=== PATIENT | female | born 1960 | race Caucasian/White ===

== ENCOUNTER 2017-11-03 10:34 | Day surgery (SDC) | payer MEDICAID ==
[2017-11-03] VITALS (9 sets, daily range): BP systolic 144–174; BP diastolic 59–100
[~2017-11-03] VITALS: Ht 165.1 cm; Wt 96.6 kg
[~2017-11-03 10:34] MED LIST: HYDR-3972 PO; IRBE150T51 PO; PARO-62 PO; TEMA30CA5 PO
[2017-11-03] MEDS ORDERED: diphenhydrAMINE 25mg capsule PO PRN (11:00)
[2017-11-03] MEDS ORDERED: normal saline 1000ml 1,000 ML IV SCH (11:00)
[2017-11-03] MEDS ORDERED: LORazepam 0.5 MG tablet PO PRN (11:00)
[2017-11-03] MEDS ORDERED: ALB0.5UD IH (11:48)
[2017-11-03] MEDS ORDERED: oxygen (11:48)
[2017-11-03] MEDS ORDERED: NITR0.4T51 SL (11:48)
[2017-11-03] MEDS ORDERED: ALBU8HFA PO (11:48)
[2017-11-03] MEDS ORDERED: ASPI81TA52 PO (11:48)
[2017-11-03] MEDS ORDERED: TIOT4MIS3 INH (11:48)
[2017-11-03] MEDS ORDERED: midazolam 2 mg/2 ml injection ONE (12:54)
[2017-11-03] MEDS ORDERED: fentaNYL/PF 50MCG/1 ML 2ML syringe ONE (12:54)
[2017-11-03] MEDS ORDERED: LIDOcaine 1% w/EPI 1:100,000 30ml vial (MDV) ONE (12:54)
[2017-11-03] MEDS ORDERED: iohexol 350MG/ML 100ml bottle IV ONE (12:54)
[2017-11-03] MEDS ORDERED: ondansetron/PF 4mg/2ml inj IV PRN (14:20)
[2017-11-03] MEDS ORDERED: HYDROcodone/acetaminophen 5mg/325mg tablet PO PRN (14:20)
[2017-11-03] MEDS ORDERED: proCHLORperazine 10 MG/2 ml inj IV PRN (14:25)
[2017-11-03] MEDS ORDERED: OXAZEpam 15mg capsule PO PRN (14:25)
[2017-11-03] MEDS ORDERED: HYDROcodone/acetaminophen 10/325mg tab PO PRN (14:25)
== END 2017-11-03 17:00 | disposition home or self-care (01) ==
LOC: SSTAY O 10:34
PROVIDERS: ATTEND Internal Medicine Interventional Cardiology
DX: I25.118 Atherosclerotic heart disease of native coronary artery with other forms of angina pectoris (principal); E78.5 Hyperlipidemia, unspecified; J43.9 Emphysema, unspecified; I12.9 Hypertensive chronic kidney disease with stage 1 through stage 4 chronic kidney disease, or unspecified chronic kidney disease; N18.4 Chronic kidney disease, stage 4 (severe); F32.89 Other specified depressive episodes; F17.210 Nicotine dependence, cigarettes, uncomplicated; Z86.14 Personal history of Methicillin resistant Staphylococcus aureus infection; Z91.048 Other nonmedicinal substance allergy status; Z79.82 Long term (current) use of aspirin; Z90.49 Acquired absence of other specified parts of digestive tract; Z86.74 Personal history of sudden cardiac arrest; Z90.2 Acquired absence of lung [part of]; Z88.8 Allergy status to other drugs, medicaments and biological substances; Z98.890 Other specified postprocedural states; Z79.899 Other long term (current) drug therapy
CPT/HCPCS: 93005; 93458; 99152; A6257; C1769; J1644; J2250; J3010; J3490; J7030; Q0163; Q9967; A4620

== ENCOUNTER 2018-10-03 09:03 | Inpatient (IN) | payer MEDICAID ==
[2018-09-29 15:24] LABS: CLARITY,URINE CLEAR (Clear); COLOR,URINE STRAW (Yellow); GLUCOSE, URINE NEGATIVE (Neg); KETONES,URINE NEGATIVE (Neg); LEUKOCYTE ESTERASE ,URINE NEGATIVE (Neg); NITRITES, URINE NEGATIVE (Neg); OCCULT BLOOD,URINE NEGATIVE (Neg); PH,URINE 6.5 (4.8-8.0); PROTEIN,URINE NEGATIVE (Neg); UROBILINOGEN,URINE 0.2 E.U/dL (0.2-1.0)
[2018-09-29 15:25] LABS: UA COLLECTION TYPE NON-SPECIFIED
[2018-09-29 15:33] LABS: BASOPHILS # (AUTO) 0.1 X10'3 (0-0.2); BASOPHILS % (AUTO) 0.7 % (0-1); EOSINOPHILS # (AUTO) 0.3 X10'3 (0-0.9); EOSINOPHILS % (AUTO) 3.5 % (0-6); LYMPHOCYTES # (AUTO) 1.9 X10'3 (1.1-4.8); MEAN CORPUSCULAR HEMOGLOBIN 30.2 PG (27.0-31.0); MEAN CORPUSCULAR VOLUME 88.9 FL (78-98); MEAN PLATELET VOLUME 10.3 FL (7.4-10.4); MONOCYTES # (AUTO) 0.6 X10'3 (0-0.9); NEUTROPHILS # (AUTO) 5.2 X10'3 (1.8-7.7); NEUTROPHILS % (AUTO) 64.8 % (42-75); PRE OP HEMATOCRIT 46.9 % (35.0-45.0); PRE OP HEMOGLOBIN 15.9 g/dL (12.0-16.0); PRE OP PLATELET COUNT 202 X10'3 (140-440); RED BLOOD COUNT 5.27 X10'6 (4.20-5.60); RED CELL DISTRIBUTION WIDTH 13.5 % (11.5-14.5)
[2018-09-29 16:08] LABS: ALBUMIN/GLOBULIN RATIO 0.6 (1.1-1.5); ALKALINE PHOSPHATASE 87 IU/L (46-116); BLOOD UREA NITROGEN 11 MG/DL (7-18); BUN/CREATININE RATIO 14.5 (6.6-38.0); CALCIUM 8.2 MG/DL (8.5-10.1); CHLORIDE 104 MMOL/L (99-107); CREATININE 0.76 MG/DL (0.40-0.90); PRE OP ALT 24 U/L (30-65); PRE OP ANION GAP 11 (8-16); PRE OP AST 29 U/L (10-37); PRE OP BILIRUB, TOTAL 0.2 MG/DL (0.0-1.0); PRE OP GLUCOSE 122 MG/DL (70-104); PRE OP POTASSIUM 3.8 MMOL/L (3.4-5.1); PRE OP PROTIME 9.7 SECONDS (9.0-12.0); PRE OP SODIUM 136 MMOL/L (135-145); TOTAL PROTEIN 7.7 G/DL (6.4-8.2); eGFR 78 ML/MIN
[2018-10-03] VITALS (30 sets, daily range): BP systolic 91–177; BP diastolic 48–124
[~2018-10-03] VITALS: Ht 165.1 cm; Wt 98.5 kg
[~2018-10-03 09:03] MED LIST changes: +ALBU8HFA PO; +FAMO40TA73 PO; -HYDR-3972 PO; -IRBE150T51 PO; +LOSA25TA96 PO; -TEMA30CA5 PO; +TIOT4MIS3 INH; +VARE0.5T PO; +albuterol 2.5 MG/3 ML nebule NEB ONE; +ceFAZolin 2gm in dextrose, iso 100 ML IV ONE; +cefazolin/dext.iso 2gm/100ml 100 ML IV ONE; +famotidine 20mg tablet PO ONE; +oxygen; +ringers solution, lacted 1,000 ML IV SCH
[2018-10-03] MEDS ORDERED: ROPIVAcaine 0.5% (5mg/ml) 30ml vial ONE (10:31)
[2018-10-03] MEDS ORDERED: BUPIVAcaine/PF 2.5 mg/ml (0.25%) 30ml vial ONE (10:31)
[2018-10-03] MEDS ORDERED: LIDOcaine 1% 30ml preserv. free vial ONE (10:31)
[2018-10-03] MEDS ORDERED: ketorolac trometh. 30mg/ml inj. ONE (10:31)
[2018-10-03] MEDS ORDERED: sevoflurane 250ml liquid IH ONE (11:27)
[2018-10-03] MEDS ORDERED: midazolam 2 mg/2 ml injection ONE (11:31)
[2018-10-03] MEDS ORDERED: fentaNYL /PF 50mcg/ml 5ml ampule ONE (11:39)
[2018-10-03] MEDS ORDERED: albuterol 60 PUFF/8GM Inhaler IH ONE (12:21)
[2018-10-03] MEDS ORDERED: LIDOcaine 2% (20mg/ml) 5ml vial ONE (12:21)
[2018-10-03] MEDS ORDERED: ondansetron/PF 4mg/2ml inj ONE (12:21)
[2018-10-03] MEDS ORDERED: neostigmine methylsulfate 1 MG/ML 10ml vial ONE (12:21)
[2018-10-03] MEDS ORDERED: dexamethasone sod phosphate 4mg/ml inj. ONE (12:21)
[2018-10-03] MEDS ORDERED: propofol inj 20 ML IV ONE (12:21)
[2018-10-03] MEDS ORDERED: rocuronium 10mg/ml inj IV ONE (12:21)
[2018-10-03] MEDS ORDERED: glycopyrrolate 0.2mg/ml inj ONE (12:21)
[2018-10-03] MEDS ORDERED: ringers solution, lacted 1,000 ML IV SCH (12:26)
[2018-10-03] MEDS ORDERED: phenylephrine 10mg/ml inj. ONE (12:29)
[2018-10-03] MEDS ORDERED: meperidine/PF 25mg/ml syringe IV PRN ×2 (12:30)
[2018-10-03] MEDS ORDERED: proCHLORperazine 10 MG/2 ml inj IV PRN (12:30)
[2018-10-03] MEDS ORDERED: morphine 4 MG/ML inj SYRINge IV PRN ×2 (12:30)
[2018-10-03] MEDS ORDERED: ondansetron/PF 4mg/2ml inj IV PRN ×2 (12:30→14:45)
[2018-10-03] MEDS ORDERED: sugammadex 200mg/2ml injection IV ONE (14:17)
--- NOTE | 2018-10-03 14:23 | NUR ---
Received from OR via [facility], accompanied by Anesthesiologist DR PINEDO and report given by Anesthesiologist. PT VERY DROWSY, VSS, PT GIVEN .2MG ROMAZICON AND 5MG LABETALOL BY DR PINEDO. ABDOMEN W/ABD BINDER IN PLACE COVERING 3 INCISION W/DERMABOND, CDI. Addendum: 10/03/18 at 1514 by Nadya Lozano RN Amended: Links added.
[2018-10-03] MEDS ORDERED: flumazenil 0.1 mg/ml inj. IV ONE (14:28)
[2018-10-03] MEDS ORDERED: labetalol 20mg/4ml (5mg/ml) syringe IV ONE (14:34)
[2018-10-03] MEDS ORDERED: ipratropium/albuterol 3ml nebule NEB PRN (14:40)
[2018-10-03] MEDS ORDERED: Potassium Cl inj 20 MEQ in ringers solution, lacted 1,000 ML IV SCH (14:45)
[2018-10-03] MEDS ORDERED: albuterol 2.5 MG/3 ML nebule NEB PRN (14:45)
[2018-10-03] MEDS ORDERED: ipratropium/albuterol 3ml nebule ONE (14:50)
[2018-10-03] MEDS: TIOTROPIUM BR IH SCH (16:00)
[2018-10-03] MEDS: OLODATEROL HCL IH SCH (16:00)
[2018-10-03] MEDS: meperidine/PF 25mg/ml syringe IV PRN ×2 (16:22→16:33)
--- NOTE | 2018-10-03 16:53 | NUR ---
Report called to receiving nurse. Transferred via BED, 1 BAG OF PERSONAL Belongings SENT W/PT TO ROOM 354A, RECEIVING RN AT BEDSIDE, PT ABLE TO AMBULATE FROM GURNEY TO BED W/ 1 ASSIST, BLL, SIDE RAILS UP X 2, CALL LIGHT GIVEN, PT COMFORTABLE. Special Issues communicated to receiving nurse. YES. Addendum: 10/03/18 at 1715 by Nadya Lozano RN Amended: Links added.
--- NOTE | 2018-10-03 17:00 | NUR ---
received pt from post-op. VS stable. Pt denies pain. connected to vital sign machine for post-op vitals. No concerns at this time.
[2018-10-03] MEDS: Potassium Cl inj 20 MEQ in ringers solution, lacted 1,000 ML IV SCH (18:26)
--- NOTE | 2018-10-03 18:30 | NUR ---
Patient in room [facility]. I have received report from Debra MIMS and had the opportunity to ask questions and assume patient care.
--- NOTE | 2018-10-03 18:40 | NUR ---
Problems reprioritized. Patient report given, questions answered & plan of care reviewed with PRASANNA Hussein.
[2018-10-03] MEDS: oxyCODONE/APAP 10/325mg tablet PO PRN (19:09)
--- NOTE | 2018-10-03 20:37 | NUR ---
Called MD as patient has tried to void x 2 since arriving to floor earlier . Patient has only voided 3 small drops of urine. Order received to straight cath and then if patient continues to have voiding issues later on this evening, may insert F/C.
[2018-10-03] MEDS: varenicline tartrate 0.5mg tablet PO SCH (22:03)
[2018-10-03] MEDS: heparin, porcine 5000 units/ml vial SQ SCH (22:04)
[2018-10-04] VITALS: BP 112/61
[2018-10-04] MEDS: Potassium Cl inj 20 MEQ in ringers solution, lacted 1,000 ML IV SCH ×3 (02:21→17:15)
[2018-10-04 04:00] VITALS: BP 107/63
--- NOTE | 2018-10-04 06:45 | NUR ---
Problems reprioritized. Patient report given, questions answered & plan of care reviewed with Tank MIMS. F/C was inserted around 0515 d/t pt. being unable to void again. Draining yellow urine around 140cc thus far.
--- NOTE | 2018-10-04 06:48 | NUR ---
Patient in room [facility]. I have received report from Jovita MIMS and had the opportunity to ask questions and assume patient care.
[2018-10-04 07:00] VITALS: BP 107/75
[2018-10-04] MEDS: OLODATEROL HCL IH SCH (08:00)
[2018-10-04] MEDS: TIOTROPIUM BR IH SCH (08:00)
[2018-10-04] MEDS: varenicline tartrate 0.5mg tablet PO SCH ×2 (08:35→21:09)
[2018-10-04] MEDS: PARoxetine 20mg tablet PO SCH (08:35)
[2018-10-04] MEDS: losartan 50mg tablet PO SCH (08:35)
[2018-10-04] MEDS: oxyCODONE/APAP 10/325mg tablet PO PRN ×2 (08:35→21:08)
[2018-10-04] MEDS: famotidine 20mg tablet PO SCH (08:35)
[2018-10-04] MEDS: heparin, porcine 5000 units/ml vial SQ SCH ×2 (08:36→21:11)
--- NOTE | 2018-10-04 08:44 | NUR ---
Patient's own inhaler not available at this time. I asked patient to call her family to bring it to the hospital so it can be administered, patient said she will call her family
[2018-10-04 11:00] VITALS: BP 109/72
--- NOTE | 2018-10-04 13:47 | NUR ---
Dr. Mansfield phoned for an update. Orders to D/C FC received. anticipates rounding later this afternoon.
--- NOTE | 2018-10-04 14:40 | NUR ---
Pascual catheter discontinued as per MD order. Encouraged patient to ambulate and instructed her to let us know if she voided
--- NOTE | 2018-10-04 14:45 | NUR ---
Per Maylin MIMS who covered for me while I am out, patient reported she took her dose of inhaler already for today
--- NOTE | 2018-10-04 18:05 | NUR ---
Patient in room [facility]. I have received report from Tank MIMS and had the opportunity to ask questions and assume patient care. Patient awake in bed. Denies further needs.
--- NOTE | 2018-10-04 18:48 | NUR ---
Problems reprioritized. Patient report given, questions answered & plan of care reviewed with Mikala MIMS and Pranav MIMS.
[2018-10-04 20:00] VITALS: BP 102/67
[2018-10-05] VITALS: BP 144/88
[2018-10-05] MEDS: Potassium Cl inj 20 MEQ in ringers solution, lacted 1,000 ML IV SCH ×2 (01:12→09:43)
--- NOTE | 2018-10-05 06:17 | NUR ---
Patient in room [facility]. I have received report from Mikala MIMS and Pranav MIMS and had the opportunity to ask questions and assume patient care.
--- NOTE | 2018-10-05 06:23 | NUR ---
Problems reprioritized. Patient report given, questions answered & plan of care reviewed with Tank MIMS. Patient eyes closed, respirations even.
--- NOTE | 2018-10-05 06:35 | NUR ---
I have observed and reviewed Pranav MIMS care and I agree with his charting.
[2018-10-05 07:00] VITALS: BP 117/69
[2018-10-05] MEDS: OLODATEROL HCL IH SCH (07:39)
[2018-10-05] MEDS: TIOTROPIUM BR IH SCH (07:39)
[2018-10-05] MEDS: varenicline tartrate 0.5mg tablet PO SCH ×2 (09:44→20:36)
[2018-10-05] MEDS: losartan 50mg tablet PO SCH (09:44)
[2018-10-05] MEDS: famotidine 20mg tablet PO SCH (09:44)
[2018-10-05] MEDS: PARoxetine 20mg tablet PO SCH (09:44)
[2018-10-05] MEDS: heparin, porcine 5000 units/ml vial SQ SCH ×2 (09:45→20:37)
[2018-10-05] MEDS: oxyCODONE/APAP 10/325mg tablet PO PRN ×2 (09:48→17:16)
[2018-10-05 11:00] VITALS: BP 150/92
--- NOTE | 2018-10-05 13:48 | NUR ---
Patient ambulates today with 2 person assist using FWW, tolerated. Patient said she had passed gas this morning
--- NOTE | 2018-10-05 14:27 | NUR ---
Spoke to Dr. Mansfield on the phone, gave him update about the patient status. I let him know about patient ended up with a lemons catheter last night and also let him know about patient's abdomen is bigger than yesterday but patient was passing gas Addendum: 10/05/18 at 1439 by Tank Mills RN Dr. Mansfield said he should be here in about 1 1/2hrs as he is still in [facility] at this time
--- NOTE | 2018-10-05 14:50 | NUR ---
Discontinued lemons catheter. Instructed patient to void once she start feeling the urge to pee. Patient had expressed that she does not want to go home with the lemons catheter. Will wait for Dr. Mansfield to make rounds
--- NOTE | 2018-10-05 16:53 | NUR ---
Dr. Mansfield seen patient aware of the ongoing problem of urinary retention. He told me that patient is staying overnight and will be seen by Dr. Mo. Dr. Mansfield also said that we can bladder scan patient, straight cath x 1 and insert lemons if urinary retention persist just like what we did yesterday.
--- NOTE | 2018-10-05 18:00 | NUR ---
Patient in room [facility]. I have received report from Tank MIMS and had the opportunity to ask questions and assume patient care. Family at bedside. Denies further needs at this time.
--- NOTE | 2018-10-05 18:31 | NUR ---
Problems reprioritized. Patient report given, questions answered & plan of care reviewed with Mikala MIMS and Pranav MIMS.
[2018-10-05 19:00] VITALS: BP 153/95
[2018-10-06] VITALS: BP 139/70
[2018-10-06] MEDS: oxyCODONE/APAP 10/325mg tablet PO PRN ×2 (03:05→09:10)
--- NOTE | 2018-10-06 04:47 | NUR ---
Patient unable to urinate at 2130, straight cath at 2200, ambulated patient at 0200 she urinated 50 ml, additionally urinated 50 ml at 0330. Patient unable to urinate any more, placed Pascual per order, 325ml out. Pascual cath clamped to bladder train. Will continue to monitor.
--- NOTE | 2018-10-06 06:27 | NUR ---
Problems reprioritized. Patient report given, questions answered & plan of care reviewed with Phani RN.
--- NOTE | 2018-10-06 06:30 | NUR ---
Patient in room [facility]. I have received report from Mikala/Pranav MIMS and had the opportunity to ask questions and assume patient care.
--- NOTE | 2018-10-06 06:37 | NUR ---
Observed and reviewed charting of Pranav MIMS, agree with care.
[2018-10-06 08:00] VITALS: BP 136/82
[2018-10-06] MEDS: TIOTROPIUM BR IH SCH (08:04)
[2018-10-06] MEDS: OLODATEROL HCL IH SCH (08:04)
[2018-10-06] MEDS: famotidine 20mg tablet PO SCH (09:04)
[2018-10-06] MEDS: varenicline tartrate 0.5mg tablet PO SCH (09:04)
[2018-10-06] MEDS: PARoxetine 20mg tablet PO SCH (09:04)
[2018-10-06] MEDS: losartan 50mg tablet PO SCH (09:05)
[2018-10-06] MEDS: heparin, porcine 5000 units/ml vial SQ SCH (09:05)
[2018-10-06] MEDS ORDERED: OXYC-150 PO (09:10)
--- NOTE | 2018-10-06 09:21 | NUR ---
Dr. Bynum rounded. He discussed w/ pt her history of bladder retention and need to send her home w/ the FC. Questions were asked and answered. Dr. yBnum stated he spoke w/ Dr. Watt who stated pt could go to his urology office and be taught how to straight cath. Call was made by me to Dr. Mcbride office and instructions to pt are to go to office and warp picker new patient papers, fill them out, and an appt will be made at that time. Instructions included in discharge teaching and paperwork. Phani MIMS notified.
[2018-10-06 11:00] VITALS: BP_SYST 119; BP_SYST 96; BP_DIAS 58; BP_DIAS 88
--- NOTE | 2018-10-06 12:30 | NUR ---
Patient discharged at this time, patient understands to follow up with Urologist for catheter removal. 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 Patient understood discharge teaching via verbal confirmation. Patient left on her own 02. Patient IV was whole and intact upon removal at the time of discharge. Patient was taken to private vehicle via wheel chair.
== END 2018-10-06 12:45 | disposition home or self-care (01) | DRG 227 ==
LOC: PAS 09:03 → SUR 3N 14:45 → OBSVTOIN 10-04 17:30
PROVIDERS: ADMIT Surgery; ATTEND Surgery
PROC: 8E0W4CZ Robotic Assisted Procedure of Trunk Region, Percutaneous Endoscopic Approach (ICD-10-PCS; 2018-10-03)
PROC: 0DNU4ZZ Release Omentum, Percutaneous Endoscopic Approach (ICD-10-PCS; 2018-10-03)
PROC: 0DNE4ZZ Release Large Intestine, Percutaneous Endoscopic Approach (ICD-10-PCS; 2018-10-03)
PROC: 3E0T3BZ Introduction of Anesthetic Agent into Peripheral Nerves and Plexi, Percutaneous Approach (ICD-10-PCS; 2018-10-03)
PROC: 0WUF4JZ Supplement Abdominal Wall with Synthetic Substitute, Percutaneous Endoscopic Approach (ICD-10-PCS; principal; 2018-10-03 11:27)
DX: K43.0 Incisional hernia with obstruction, without gangrene (principal); J43.9 Emphysema, unspecified; K21.9 Gastro-esophageal reflux disease without esophagitis; E66.9 Obesity, unspecified; F41.9 Anxiety disorder, unspecified; R33.9 Retention of urine, unspecified; N39.490 Overflow incontinence; I10 Essential (primary) hypertension; Z88.8 Allergy status to other drugs, medicaments and biological substances; Z91.040 Latex allergy status; Z82.49 Family history of ischemic heart disease and other diseases of the circulatory system; Z82.41 Family history of sudden cardiac death; Z82.5 Family history of asthma and other chronic lower respiratory diseases; Z87.891 Personal history of nicotine dependence; Z68.36 Body mass index [BMI] 36.0-36.9, adult; Z86.14 Personal history of Methicillin resistant Staphylococcus aureus infection; Z79.899 Other long term (current) drug therapy; Z90.2 Acquired absence of lung [part of]
CPT/HCPCS: 36415; 71046; 80053; 81003; 82948; 85025; 85610; 85730; 93005; 94060; 94640; 94760; C1781; C9399; G0378; J0690; J1100; J1644; J1885; J2001; J2175; J2250; J2370; J2405; J2704; J2710; J2795; J3010; J3480; J3490; J7120

== ENCOUNTER 2018-10-08 15:43 | Emergency (ER) | payer MEDICAID ==
[~2018-10-08] VITALS: Ht 165.1 cm; Wt 90.9 kg
[~2018-10-08 15:43] MED LIST changes: +OXYC-150 PO; -albuterol 2.5 MG/3 ML nebule NEB ONE; -ceFAZolin 2gm in dextrose, iso 100 ML IV ONE; -cefazolin/dext.iso 2gm/100ml 100 ML IV ONE; -famotidine 20mg tablet PO ONE; -ringers solution, lacted 1,000 ML IV SCH
[2018-10-08] MEDS ORDERED: magnesium hydroxide 30ml (MOM) UD suspension PO ONE (17:40)
[2018-10-08 17:44] VITALS: BP 150/78
[2018-10-08 17:50] LABS: CLARITY,URINE CLEAR (Clear); COLOR,URINE YELLOW (Yellow); GLUCOSE, URINE NEGATIVE (Neg); KETONES,URINE NEGATIVE (Neg); LEUKOCYTE ESTERASE ,URINE SMALL (Neg); NITRITES, URINE POSITIVE (Neg); OCCULT BLOOD,URINE LARGE (Neg); PH,URINE 6.5 (4.8-8.0); PROTEIN,URINE 100 mg/dl (Neg)
[2018-10-08 17:57] LABS: UA COLLECTION TYPE STRAIGHT CATH
[2018-10-08 17:58] LABS: BACTERIA,URINE FEW /HPF (Neg); RBC,URINE 50-100 /HPF (0-2); SQUAMOUS EPITHELIAL CELL,UR FEW /LPF (FEW); WBC,URINE 0-4 /HPF (0-4)
[2018-10-08 17:59] LABS: CAL OXALATE CRYSTALS 1+ /HPF (NEGATIVE); MUCUS STRANDS FEW /LPF (Neg)
[2018-10-08] MEDS ORDERED: CEPH500C5 PO (17:59)
[2018-10-08] MEDS ORDERED: MAGN400O6 PO (18:00)
== END 2018-10-08 18:14 | disposition home or self-care (01) ==
LOC: ER 15:44
DX: T83.511A Infection and inflammatory reaction due to indwelling urethral catheter, initial encounter (principal); N39.0 Urinary tract infection, site not specified; K59.00 Constipation, unspecified; I10 Essential (primary) hypertension; J44.9 Chronic obstructive pulmonary disease, unspecified; Z85.118 Personal history of other malignant neoplasm of bronchus and lung; Z90.49 Acquired absence of other specified parts of digestive tract; Z98.890 Other specified postprocedural states; Z91.040 Latex allergy status; Z79.899 Other long term (current) drug therapy; Y84.6 Urinary catheterization as the cause of abnormal reaction of the patient, or of later complication, without mention of misadventure at the time of the procedure; Y92.89 Other specified places as the place of occurrence of the external cause
CPT/HCPCS: 81001; 87077; 87088; 87186; 99283

== ENCOUNTER 2019-09-02 16:50 | Emergency (ER) | payer MEDICAID ==
[~2019-09-02] VITALS: Ht 165.1 cm; Wt 86.4 kg
[~2019-09-02 16:50] MED LIST changes: +CEPH500C5 PO; +MAGN400O6 PO
[2019-09-02] MEDS ORDERED: aspirin 81mg tab.chew PO ONE (17:05)
[2019-09-02] MEDS ORDERED: ANAS1TAB49 PO (17:10)
[2019-09-02] MEDS ORDERED: OMEP40CA13 PO (17:10)
[2019-09-02] MEDS ORDERED: methylPREDNISolone sod succ 125mg/2ml vial IV ONE (17:20)
[2019-09-02] MEDS ORDERED: ipratropium/albuterol 3ml nebule NEB ONE (17:20)
[2019-09-02] MEDS ORDERED: albuterol 2.5 MG/3 ML nebule NEB ONE (17:20)
[2019-09-02 17:30] LABS: BASOPHILS # (AUTO) 0.1 X10'3 (0-0.2); BASOPHILS % (AUTO) 0.6 % (0-1); EOSINOPHILS # (AUTO) 0.2 X10'3 (0-0.9); EOSINOPHILS % (AUTO) 1.6 % (0-6); HEMATOCRIT 44.4 % (35.0-45.0); HEMOGLOBIN 14.8 g/dl (12.0-16.0); LYMPHOCYTES # (AUTO) 1.4 X10'3 (1.1-4.8); LYMPHOCYTES % (AUTO) 12.9 % (21-51); MEAN CORPUSCULAR HEMOGLOBIN 29.3 PG (27.0-31.0); MEAN CORPUSCULAR HGB CONC 33.4 g/dL (33.0-36.5); MEAN CORPUSCULAR VOLUME 87.7 FL (78-98); MEAN PLATELET VOLUME 9.4 FL (7.4-10.4); MONOCYTES % (AUTO) 9.1 % (2-12); NEUTROPHILS # (AUTO) 8.3 X10'3 (1.8-7.7); NEUTROPHILS % (AUTO) 75.8 % (42-75); PLATELET COUNT 234 X10'3 (140-440); RED BLOOD COUNT 5.07 X10'6 (4.20-5.60); RED CELL DISTRIBUTION WIDTH 13.1 % (11.5-14.5); WHITE BLOOD COUNT 10.9 X10'3 (4.5-11.0)
[2019-09-02 17:49] LABS: ALANINE AMINOTRANSFERASE 45 U/L (12-78); ALBUMIN 2.7 G/DL (3.4-5.0); ALBUMIN/GLOBULIN RATIO 0.5 (1.1-1.5); ALKALINE PHOSPHATASE 113 IU/L (46-116); ANION GAP 5 (8-16); ASPARTATE AMINO TRANSFERASE 42 U/L (10-37); BILIRUBIN,TOTAL 0.3 MG/DL (0.1-1.0); BLOOD UREA NITROGEN 11 MG/DL (7-18); BUN/CREATININE RATIO 12.6 (6.6-38.0); CALCIUM 9.2 MG/DL (8.5-10.1); CHLORIDE 100 MMOL/L (99-107); CREATININE 0.87 MG/DL (0.40-0.90); GLUCOSE 141 MG/DL (70-104); POTASSIUM 3.5 MMOL/L (3.5-5.1); SODIUM 138 MMOL/L (135-145); TOTAL CARBON DIOXIDE 32.6 MMOL/L (24-32); TOTAL PROTEIN 7.8 G/DL (6.4-8.2); eGFR 67 ML/MIN
[2019-09-02] MEDS ORDERED: iohexol 300mg/ml 100ml inj. ONE (18:23)
--- NOTE | 2019-09-02 18:23 | NUR ---
CT informed of pt's Covid screen results and isolation status. CT cleared for pt to have scan done.
[2019-09-02] MEDS ORDERED: PRED20TA PO (20:39)
[2019-09-02] MEDS ORDERED: AZIT-31 PO (20:39)
[2019-09-02 21:12] VITALS: BP 175/85
== END 2019-09-02 21:20 | disposition left against medical advice (07) ==
LOC: ER 16:51
DX: J44.1 Chronic obstructive pulmonary disease with (acute) exacerbation (principal); Z20.828 Contact with and (suspected) exposure to other viral communicable diseases; R91.8 Other nonspecific abnormal finding of lung field; R11.0 Nausea
CPT/HCPCS: 36415; 71045; 71275; 80053; 84484; 85025; 93005; 94640; 96374; 99285; J2930; Q9967; 94760

== ENCOUNTER 2019-10-26 13:47 | Emergency (ER) | payer MEDICAID ==
[~2019-10-26] VITALS: Ht 160 cm; Wt 80.0 kg
[~2019-10-26 13:47] MED LIST changes: +ANAS1TAB49 PO; -CEPH500C5 PO; -FAMO40TA73 PO; -MAGN400O6 PO; +OMEP40CA13 PO; -OXYC-150 PO; -VARE0.5T PO; +etomidate 2mg/ml inj. ONE; -oxygen; +rocuronium 10mg/ml inj IV ONE
[2019-10-26] MEDS ORDERED: ondansetron/PF 4mg/2ml inj IV ONE (14:00)
[2019-10-26] MEDS ORDERED: normal saline 1000ML IV soln IVB ONE (14:00)
[2019-10-26] MEDS ORDERED: albuterol 2.5 MG/3 ML nebule NEB ONE (14:00)
[2019-10-26] MEDS ORDERED: morphine 4 MG/ML inj SYRINge IV ONE (14:00)
[2019-10-26] MEDS ORDERED: morphine 10mg/ml inj. IV ONE (14:05)
--- NOTE | 2019-10-26 14:12 | NUR ---
dr robledo at the bedside to intubate pt. aline rn, shreya rn, obie rn, cassi rt, su rt at the bedside. 20 mg amidate 80 mg rocuronium at 1412 bilateral breath sounds upon insertion of 7.5 tube positive color change 22 at the teeth
[2019-10-26] MEDS ORDERED: propofol 1000mg/100ml bottle 100 ML IV ONE (14:15)
[2019-10-26 14:27] LABS: HEMOGLOBIN 14.6 g/dl (12.0-16.0); MEAN CORPUSCULAR VOLUME 85.5 FL (78-98); MEAN PLATELET VOLUME 10.3 FL (7.4-10.4)
[2019-10-26] MEDS ORDERED: propofol 1000mg/100ml bottle 100 ML IV SCH (14:27)
[2019-10-26 14:29] LABS: HEMATOCRIT 43.2 % (35.0-45.0); MEAN CORPUSCULAR HEMOGLOBIN 28.8 PG (27.0-31.0); MEAN CORPUSCULAR HGB CONC 33.7 g/dL (33.0-36.5); PLATELET COUNT 84 X10'3 (140-440); RED BLOOD COUNT 5.06 X10'6 (4.20-5.60); RED CELL DISTRIBUTION WIDTH 14.3 % (11.5-14.5)
[2019-10-26] MEDS ORDERED: bacitracin 15gm ointment TP ONE (14:30)
[2019-10-26 14:31] LABS: ABG BASE EXCESS -1.9 mmol/L (-2.0-3.0); ABG HCO3 24.3 mmol/L (22.0-26.0); ABG OXYGEN SATURATION 96.6 % (95-98); ABG PCO2 (T) 46.3 mmHg (35.0-45.0); ABG PO2 (T) 94.1 mmHg (83-108); ALLEN'S TEST POSITIVE; FCOHb 2.5 % (0.5-1.5); FMetHb 0.1 % (0.3-1.12); FO2Hb 94.1 % (94-100); TIDAL VOLUME 450 mL; TOTAL HEMOGLOBIN 14.2 G/dl (12.0-16.0)
--- NOTE | 2019-10-26 14:39 | NUR ---
PROPOFOL TITRATED TO 20 MCG/KG/MIN PER REEDER
[2019-10-26 14:41] LABS: PARTIAL THROMBOPLASTIN TIME 26 SECONDS (22-32)
[2019-10-26] MEDS ORDERED: FENTANYL-0.9 % NACL/PF 100 ML IV ONE (14:45)
[2019-10-26 14:46] LABS: WHITE BLOOD COUNT 0.8 X10'3 (4.5-11.0)
[2019-10-26 14:50] LABS: ANISOCYTOSIS 1+; MICROCYTOSIS 1+; PLATELET ESTIMATE DECREASED; TOTAL CELLS COUNTED 100
[2019-10-26 14:51] LABS: ALANINE AMINOTRANSFERASE 28 U/L (12-78); ALBUMIN 2.6 G/DL (3.4-5.0); ALBUMIN/GLOBULIN RATIO 0.5 (1.1-1.5); ALKALINE PHOSPHATASE 93 IU/L (46-116); ANION GAP 15 (8-16); ASPARTATE AMINO TRANSFERASE 28 U/L (10-37); BILIRUBIN,TOTAL 1.4 MG/DL (0.1-1.0); BLOOD UREA NITROGEN 19 MG/DL (7-18); CALCIUM 8.5 MG/DL (8.5-10.1); CHLORIDE 92 MMOL/L (99-107); GLUCOSE 198 MG/DL (70-104); POTASSIUM 3.2 MMOL/L (3.5-5.1); SODIUM 130 MMOL/L (135-145); TOTAL CARBON DIOXIDE 22.9 MMOL/L (24-32); TOTAL PROTEIN 7.9 G/DL (6.4-8.2); eGFR 57 ML/MIN
--- NOTE | 2019-10-26 14:55 | NUR ---
PROPOFOL INCREASED TO 25 MCG/KG/MIN
[2019-10-26 15:06] LABS: TRIGLYCERIDES 119 MG/DL (20-135)
--- NOTE | 2019-10-26 15:19 | NUR ---
report called to PRASANNA Gordon at [facility]. Awaiting FW transport. ETA 1700.
[2019-10-26] MEDS ORDERED: CefTRIAXone/D5W-Rocephin 1gm 50 ML IV ONE (15:30)
--- NOTE | 2019-10-26 16:12 | NUR ---
Propofol gtt decreased to 15mcg/kg/min, due to decreasing BP, but pt remains well sedated. Physical oft wrist restraints applied and secured.
[2019-10-26 16:45] LABS: CLARITY,URINE CLOUDY (Clear); COLOR,URINE YELLOW (Yellow); GLUCOSE, URINE NEGATIVE (Neg); KETONES,URINE NEGATIVE (Neg); LEUKOCYTE ESTERASE ,URINE NEGATIVE (Neg); NITRITES, URINE NEGATIVE (Neg); OCCULT BLOOD,URINE SMALL (Neg); PROTEIN,URINE 100 mg/dl (Neg)
[2019-10-26 16:50] LABS: UA COLLECTION TYPE STRAIGHT CATH
[2019-10-26 16:51] LABS: BACTERIA,URINE 4+ /HPF (Neg); MUCUS STRANDS NONE SEEN /LPF (Neg); RBC,URINE 0-2 /HPF (0-2); SQUAMOUS EPITHELIAL CELL,UR FEW /LPF (FEW); WBC,URINE 0-4 /HPF (0-4)
--- NOTE | 2019-10-26 17:00 | NUR ---
[facility] 70 AT BEDSIDE WITH REPORT GIVEN.
--- NOTE | 2019-10-26 17:18 | NUR ---
REMAINING FENTANYL AND PROPOFOL ALONG WITH EXTRA BOTTLE OF PROPOFOL WITH TRANSPORT TEAM. [facility] DOES NOT CARRY PROPOFOL IN THEIR FORMULARY AND WILL POSSIBLY NEED MORE TO COVER ENTIRE TRANSPORT. VERBAL ORDER OKAY'D BY DR REEDER.
[2019-10-26 17:40] VITALS: BP 131/74
--- NOTE | 2019-10-29 09:04 | NUR ---
called and spoke to zoe milan informed them that the pt. had escherichia coli in her uring culture and was sinsitive to all antibiotics except trimethoprim/sulfa which she was resisitant
== END 2019-10-26 17:47 | disposition short-term general hospital (02) ==
LOC: ER 13:47
DX: T27.3XXA Burn of respiratory tract, part unspecified, initial encounter (principal); T20.20XA Burn of second degree of head, face, and neck, unspecified site, initial encounter; I10 Essential (primary) hypertension; J43.9 Emphysema, unspecified; F17.200 Nicotine dependence, unspecified, uncomplicated; Z85.118 Personal history of other malignant neoplasm of bronchus and lung; Z90.89 Acquired absence of other organs; Z98.890 Other specified postprocedural states; Z91.040 Latex allergy status; Z79.899 Other long term (current) drug therapy; X08.8XXA Exposure to other specified smoke, fire and flames, initial encounter; Y93.89 Activity, other specified; Y92.89 Other specified places as the place of occurrence of the external cause; Y99.8 Other external cause status
CPT/HCPCS: 31500; 36415; 36600; 71045; 80053; 81001; 82803; 84478; 85018; 85025; 85610; 85730; 87077; 87088; 87186; 93005; 94002; 94640; 96365; 96366; 96368; 96375; 99291; J0696; J2270; J2405; J2704; J7030; 94760; 96367; J3010